=== PATIENT | female | born 2000 | race Hispanic/Latino ===

== ENCOUNTER 2020-03-23 22:40 | Emergency (ER) | payer OTHER ==
[~2020-03-23] VITALS: Ht 170.2 cm; Wt 63.5 kg
[2020-03-23] MEDS ORDERED: LIDOCAINE 5% (LIDODERM) PATCH TD ONE (23:45)
[2020-03-23] MEDS ORDERED: methocarbamoL 750 MG TAB PO ONE (23:45)
[2020-03-23] MEDS ORDERED: NAPROXEN 250 MG TAB PO ONE (23:45)
--- NOTE | 2020-03-24 01:33 | REPVR ---
PROCEDURE INFORMATION: Exam: US Soft Tissues (limited) Exam date and time: 03/24/20 (12:57am) Age: 19 years old Clinical indication: Bilateral mobile, hard, round soft tissue masses -- lower posterior back. TECHNIQUE: Imaging protocol: Real-time ultrasound of the lower back region with image documentation. Examination is focused on the region of clinical interest. COMPARISON: No relevant prior studies available FINDINGS: The lower back region was examined at the area of concern. No soft tissue mass is seen. No abnormal fluid collections. Normal muscles and soft tissue elements are noted. IMPRESSION: No significant findings. No abnormal mass. No discrete fluid collections are seen. Electronically signed by: Enma Myrick On 03/24/2020 01:33:25 AM
[2020-03-24] MEDS ORDERED: ASPE4PAD TOP ×2 (01:46→01:53)
[2020-03-24] MEDS ORDERED: NAPR-837 PO ×2 (01:46→01:53)
[2020-03-24] MEDS ORDERED: ROBA750T4 PO ×2 (01:46→01:53)
[2020-03-24 01:57] VITALS: BP 112/70
[2020-03-24] MEDS ORDERED: **NOTE PATIENT COMMENT** MISC XX ONE (12:00)
== END 2020-03-24 02:02 | disposition home or self-care (01) ==
LOC: EDSEX 22:40 → M ED 22:40
DX: M54.5 Low back pain (principal); F17.200 Nicotine dependence, unspecified, uncomplicated; M79.89 Other specified soft tissue disorders